=== PATIENT | male | born 1975 | race Caucasian/White ===

== ENCOUNTER 2020-07-04 21:17 | Emergency (ER) | payer BC ==
[2020-07-04] MEDS ORDERED: SODIUM CHLORIDE 0.9% 1,000 ML IV STA (21:45)
[2020-07-04] MEDS ORDERED: ACETAMINOPHEN TAB 500 MG TAB PO STA (22:07)
--- NOTE | 2020-07-04 22:21 | ED ---
General Adult HPI - General Source: patient Mode of arrival: wheelchair Limitations: no limitations <Rahel Zeng - Last Filed: 07/04/20 22:18> <Tal Ac - Last Filed: 07/05/20 00:00> - General Chief complaint: Fever Stated complaint: Syncope, Fever, Chills Time Seen by Provider: 07/04/20 21:32 - History of Present Illness Initial comments: Patient is a 44-year-old male presenting to the emergency Department with complaints of a syncopal event at home today. Patient states for the past week he's been battling what he thinks is Covid, bodyaches, fever, mild cough. He states he has been taking Tylenol and Motrin however today he felt like he was given a pass out and did fall to the ground. He states he felt lightheaded and dizzy. He's never had this feeling before and never had events like this before in the past. He denies any chest pain, he denies any shortness of breath but states when he does walk up a flight of stairs he does feel little winded. Patient is otherwise healthy, no pertinent past medical history, no history of blood clots. He states he last took ibuprofen about 3 hours prior to arrival. He states he has been drinking a lot of fluids including Pedialyte. He denies any nausea or vomiting, he did have a little bit of diarrhea over the past few days but feels like that is clearing up. He denies any headache or dizziness at this time. He has no further complaints. Upon arrival to the ER, his temperature is 100.3, otherwise normal vitals. (Rahel Zeng) - Related Data Home Medications Medication Instructions Recorded Confirmed Acetaminophen [Tylenol] 1,000 mg PO Q6H PRN 07/04/20 07/04/20 Ibuprofen [Motrin Ib] 400 mg PO Q8H PRN 07/04/20 07/04/20 Allergies Allergy/AdvReac Type Severity Reaction Status Date / Time No Known Allergies Allergy Verified 07/04/20 22:01 Review of Systems ROS Other: All systems not noted in ROS Statement are negative. <Rahel Zeng - Last Filed: 07/04/20 22:18> ROS Other: All systems not noted in ROS Statement are negative. <Tal Ac - Last Filed: 07/05/20 00:00> ROS Statement: Those systems with pertinent positive or pertinent negative responses have been documented in the HPI. Past Medical History Past Medical History: No Reported History History of Any Multi-Drug Resistant Organisms: None Reported Past Surgical History: No Surgical Hx Reported Past Psychological History: No Psychological Hx Reported Smoking Status: Never smoker Past Alcohol Use History: None Reported Past Drug Use History: None Reported <Rahel Zeng - Last Filed: 07/04/20 22:18> General Exam Limitations: no limitations <Rahel Zeng - Last Filed: 07/04/20 22:18> - General Exam Comments Initial Comments: GENERAL: Patient is well-developed and well-nourished. Patient is nontoxic and in no acute distress. HEAD: Atraumatic, normocephalic. EYES: Pupils equal round and reactive to light, extraocular movements intact, sclera anicteric, conjunctiva are normal. Eyelids were unremarkable. ENT: TMs normal, nares patent, oropharynx clear without exudates. Moist mucous membranes. NECK: Normal range of motion, supple without lymphadenopathy or JVD. LUNGS: Unlabored respirations. Breath sounds clear to auscultation bilaterally and equal. No wheezes rales or rhonchi. HEART: Regular rate and rhythm without murmurs, rubs or gallops. ABDOMEN: Soft, nontender, normoactive bowel sounds. No guarding, no rebound. No masses appreciated. : Deferred MUSCULOSKELETAL: Normal extremities with adequate strength and normal range of motion, no pitting or edema. No clubbing or cyanosis. NEUROLOGICAL: Patient is alert and oriented x 3. Motor and sensory are also intact. Cranial nerves II through XII grossly intact. Symmetrical smile. Normal speech, normal gait. PSYCH: Normal mood, normal affect. SKIN: Warm, Dry, normal turgor, no rashes or lesions noted. (Rahel Zeng) Course Vital Signs 07/04/20 07/04/20 21:21 23:00 Temperature 100.3 F H 100.2 F H Pulse Rate 97 89 Respiratory 18 20 Rate Blood Pressure 135/82 122/69 O2 Sat by Pulse 98 98 Oximetry EKG Findings - EKG Comments: EKG Findings:: Normal sinus rhythm, normal ECG, no signs of acute ischemia. Ventricular rate 92, HI interval 138, QT 354. <AzucenaFernandaRahel L - Last Filed: 07/04/20 22:18> Medical Decision Making <Rahel Zeng Rianna - Last Filed: 07/04/20 22:18> - Lab Data Result diagrams: 07/04/20 22:20 07/04/20 22:20 <Tal Ac - Last Filed: 07/05/20 00:00> - Medical Decision Making Patient is a 44-year-old male presenting for having a syncopal at home today. Patient states he has been battling what he thinks is Covid for the past 5 days. He has not been tested. He did arrive with a slight fever, otherwise vitals were normal. His exam is unremarkable. She said no acute process. (Rahel Zeng) I took over care of patient at 2300 from NIKO Franklin. Briefly patient is a 44-year-old male without any significant past medical history who presents for near syncopal episode. Patient states he has had cold symptoms for a week now. States today he said get hot and feel weak, felt like he was going to pass out. He lowered himself to the ground. Patient did not lose consciousness. Patient states he felt better shortly after that presented to the emergency room for further evaluation. Patient denies chest pain or shortness of breath. Patient denies any lightheadedness at this time. CBC CMP unremarkable. EKG was reviewed, no ischemic changes. Troponin is negative. Martins virus was detected. Chest x-ray shows a normal chest. Patient was given a liter of fluids. He is somewhat better at this time. At this time patient is stable for discharge home and outpatient follow-up. He should return here for any worsening symptoms which was discussed with him. (Tal Ac) - Lab Data Lab Results 07/04/20 07/04/20 07/04/20 Range/Units 21:33 22:20 22:20 WBC 4.8 (3.8-10.6) k/uL RBC 5.12 (4.30-5.90) m/uL Hgb 15.2 (13.0-17.5) gm/dL Hct 43.1 (39.0-53.0) % MCV 84.2 (80.0-100.0) fL MCH 29.6 (25.0-35.0) pg MCHC 35.2 (31.0-37.0) g/dL RDW 12.2 (11.5-15.5) % Plt Count 133 L (150-450) k/uL MPV 7.1 Neutrophils % 83 % Lymphocytes % 11 % Monocytes % 5 % Eosinophils % 0 % Basophils % 0 % Neutrophils # 4.0 (1.3-7.7) k/uL Lymphocytes # 0.5 L (1.0-4.8) k/uL Monocytes # 0.3 (0-1.0) k/uL Eosinophils # 0.0 (0-0.7) k/uL Basophils # 0.0 (0-0.2) k/uL PT 10.3 (9.0-12.0) sec INR 1.0 (<1.2) APTT 23.3 (22.0-30.0) sec Sodium (137-145) mmol/L Potassium (3.5-5.1) mmol/L Chloride (98-107) mmol/L Carbon Dioxide (22-30) mmol/L Anion Gap mmol/L BUN (9-20) mg/dL Creatinine (0.66-1.25) mg/dL Est GFR (CKD-EPI)AfAm (>60 ml/min/1.73 sqM) Est GFR (CKD-EPI)NonAf (>60 ml/min/1.73 sqM) Glucose (74-99) mg/dL Calcium (8.4-10.2) mg/dL Total Bilirubin (0.2-1.3) mg/dL AST (17-59) U/L ALT (4-49) U/L Alkaline Phosphatase (38-126) U/L Troponin I (0.000-0.034) ng/mL Total Protein (6.3-8.2) g/dL Albumin (3.5-5.0) g/dL Coronavirus (PCR) Detected A (Not Detectd) 07/04/20 07/04/20 Range/Units 22:20 22:20 WBC (3.8-10.6) k/uL RBC (4.30-5.90) m/uL Hgb (13.0-17.5) gm/dL Hct (39.0-53.0) % MCV (80.0-100.0) fL MCH (25.0-35.0) pg MCHC (31.0-37.0) g/dL RDW (11.5-15.5) % Plt Count (150-450) k/uL MPV Neutrophils % % Lymphocytes % % Monocytes % % Eosinophils % % Basophils % % Neutrophils # (1.3-7.7) k/uL Lymphocytes # (1.0-4.8) k/uL Monocytes # (0-1.0) k/uL Eosinophils # (0-0.7) k/uL Basophils # (0-0.2) k/uL PT (9.0-12.0) sec INR (<1.2) APTT (22.0-30.0) sec Sodium 135 L (137-145) mmol/L Potassium 3.8 (3.5-5.1) mmol/L Chloride 99 (98-107) mmol/L Carbon Dioxide 27 (22-30) mmol/L Anion Gap 9 mmol/L BUN 18 (9-20) mg/dL Creatinine 1.24 (0.66-1.25) mg/dL Est GFR (CKD-EPI)AfAm 83 (>60 ml/min/1.73 sqM) Est GFR (CKD-EPI)NonAf 72 (>60 ml/min/1.73 sqM) Glucose 108 H (74-99) mg/dL Calcium 8.6 (8.4-10.2) mg/dL Total Bilirubin 0.5 (0.2-1.3) mg/dL AST 33 (17-59) U/L ALT 31 (4-49) U/L Alkaline Phosphatase 65 (38-126) U/L Troponin I <0.012 (0.000-0.034) ng/mL Total Protein 6.6 (6.3-8.2) g/dL Albumin 4.2 (3.5-5.0) g/dL Coronavirus (PCR) (Not Detectd) Disposition <Rahel Zeng - Last Filed: 07/04/20 22:18> Is patient prescribed a controlled substance at d/c from ED?: No Time of Disposition: 23:51 <Tal Ac - Last Filed: 07/05/20 00:00> Clinical Impression: Near syncope, COVID-19 Disposition: HOME SELF-CARE Condition: Good Instructions (If sedation given, give patient instructions): Fever in Adults (ED), Coronavirus Disease 2019 (COVID-19) Additional Instructions: Please take Motrin and Tylenol for fever. Drink plenty of fluids. Please follow- up with primary care in 1-2 days. Return to the emergency room for any worsening symptoms. Referrals: Gadiel Leal MD [Primary Care Provider] - 1-2 days
--- NOTE | 2020-07-04 22:25 | XR ---
EXAMINATION TYPE: XR chest 1V portable DATE OF EXAM: 07/04/2020 COMPARISON: NONE HISTORY: Fever and chills TECHNIQUE: Single view FINDINGS: Heart and mediastinum are normal. Lungs are clear. Diaphragm is normal. Bony thorax appears normal. IMPRESSION: Normal chest. Normal heart.
[2020-07-04 22:58] LABS: Basophils % (A) 0 %; Eosinophils % (A) 0 %; HCT 43.1 % (39.0-53.0); HGB 15.2 gm/dL (13.0-17.5); Lymphocytes # (A) 0.5 k/uL (1.0-4.8); Lymphocytes % (A) 11 %; MCH 29.6 pg (25.0-35.0); MCHC 35.2 g/dL (31.0-37.0); MCV 84.2 fL (80.0-100.0); Mean Platelet Volume 7.1; Monocytes # (A) 0.3 k/uL (0-1.0); Monocytes % (A) 5 %; Neutrophils % (A) 83 %; Platelet Count 133 k/uL (150-450); RBC 5.12 m/uL (4.30-5.90); RDW 12.2 % (11.5-15.5); WBC 4.8 k/uL (3.8-10.6)
[2020-07-04 23:09] LABS: Albumin 4.2 g/dL (3.5-5.0); Calcium 8.6 mg/dL (8.4-10.2); Potassium 3.8 mmol/L (3.5-5.1); Total Bilirubin 0.5 mg/dL (0.2-1.3); Total Protein 6.6 g/dL (6.3-8.2)
[2020-07-04 23:14] VITALS: PULSE 89; RESP 20
[2020-07-04 23:24] LABS: Partial Thromboplastin Time 23.3 sec (22.0-30.0); Prothrombin Time 10.3 sec (9.0-12.0)
[2020-07-05 00:24] VITALS: BP 126/65; TEMP 100
[2020-07-05 00:47] LABS: Appearance,Urine Clear (Clear); Bilirubin,Urine Negative (Negative); Blood,Urine Negative (Negative); Color,Urine Yellow; Glucose,Urine (UA) Negative (Negative); Ketones,Urine 1+ (Negative); Leukocyte Esterase,Urine Negative (Negative); Nitrite,Urine Negative (Negative); Protein,Urine Trace (Negative); Specific Gravity,Urine 1.025 (1.001-1.035); Urobilinogen,Urine <2.0 mg/dL (<2.0)
== END 2020-07-05 00:05 | disposition home or self-care (01) ==
LOC: EC 21:17
DX: U07.1 COVID-19 (principal); R55 Syncope and collapse
CPT/HCPCS: 36415; 71045; 80053; 81003; 84484; 85025; 85610; 85730; 87635; 93005; 96360; 99284

== ENCOUNTER 2021-10-23 14:34 | Emergency (ER) | payer BC ==
[2021-10-23 14:40] VITALS: BP 129/76; PULSE 88; RESP 18; TEMP 97.3
[2021-10-23] MEDS ORDERED: SODIUM CHLORIDE 0.9% 1,000 ML IV STA (14:54)
[2021-10-23 15:02] LABS: Basophils % (A) 0 %; Eosinophils # (A) 0.3 k/uL (0-0.7); Eosinophils % (A) 3 %; HCT 45.2 % (39.0-53.0); HGB 15.5 gm/dL (13.0-17.5); Lymphocytes % (A) 31 %; MCH 30.3 pg (25.0-35.0); MCHC 34.4 g/dL (31.0-37.0); MCV 88.1 fL (80.0-100.0); Mean Platelet Volume 7.2; Monocytes # (A) 0.5 k/uL (0-1.0); Monocytes % (A) 5 %; Neutrophils # (A) 5.5 k/uL (1.3-7.7); Neutrophils % (A) 58 %; Platelet Count 250 k/uL (150-450); RBC 5.13 m/uL (4.30-5.90); WBC 9.5 k/uL (3.8-10.6)
--- NOTE | 2021-10-23 15:04 | XR ---
EXAMINATION TYPE: XR chest 2V DATE OF EXAM: 10/23/2021 COMPARISON: 07/04/2020 HISTORY: Fever and chills TECHNIQUE: 2 views FINDINGS: Heart and mediastinum are normal. Lungs are clear. Diaphragm is normal. Bony thorax is inta ct. IMPRESSION: Normal chest. No change.
[2021-10-23 15:11] LABS: ALT 22 U/L (4-49); AST 29 U/L (17-59); African American GFR (CKD) 83 (>60 ml/min/1.73 sqM); Albumin 4.6 g/dL (3.5-5.0); Alkaline Phosphatase 71 U/L (38-126); Anion Gap 12 mmol/L; Blood Urea Nitrogen 18 mg/dL (9-20); Calcium 9.1 mg/dL (8.4-10.2); Carbon Dioxide 25 mmol/L (22-30); Chloride 102 mmol/L (98-107); Glucose 148 mg/dL (74-99); Magnesium 2.1 mg/dL (1.6-2.3); Non-African American GFR(CKD) 71 (>60 ml/min/1.73 sqM); Potassium 3.6 mmol/L (3.5-5.1); Sodium 139 mmol/L (137-145); Total Bilirubin 0.4 mg/dL (0.2-1.3); Total Protein 7.1 g/dL (6.3-8.2)
[2021-10-23 15:19] LABS: Partial Thromboplastin Time 22.1 sec (22.0-30.0); Prothrombin Time 10.5 sec (9.0-12.0)
--- NOTE | 2021-10-23 15:45 | ED ---
Arrhythmia/Palpitations HPI - General Chief Complaint: Arrhythmia/Palpitations Stated Complaint: racing heart rate Time Seen by Provider: 10/23/21 14:41 Source: patient Mode of arrival: ambulatory Limitations: no limitations - History of Present Illness Initial Comments: Patient is a 46-year-old male presenting with chief complaint of palpitations. Patient states that prior to arrival he was in his truck after eating lunch, when he felt sudden onset of fluttering in his chest. Patient states he felt as though he was going to pass out, he states his vision became blurry and his hearing sounded distorted. He had a moment of difficulty breathing. He states that he was able to get into the passenger's seat and turned on the air which helped him to calm down. Patient states that he has had episodes of palpitations before, however he has never followed up with his provider regarding them. He denies any chest pain, weakness, abdominal pain, nausea, vomiting, fever, chills, recent illness, URI-like symptoms, cough. - Related Data Home Medications Medication Instructions Recorded Confirmed Amoxic-Pot Clav 875-125Mg 1 tab PO BID 10/23/21 10/23/21 [Augmentin 875-125] Allergies Allergy/AdvReac Type Severity Reaction Status Date / Time No Known Allergies Allergy Verified 10/23/21 15:37 Review of Systems ROS Statement: Those systems with pertinent positive or pertinent negative responses have been documented in the HPI. ROS Other: All systems not noted in ROS Statement are negative. Past Medical History Past Medical History: No Reported History History of Any Multi-Drug Resistant Organisms: None Reported Past Surgical History: No Surgical Hx Reported Past Psychological History: No Psychological Hx Reported Smoking Status: Never smoker Past Alcohol Use History: None Reported Past Drug Use History: None Reported General Exam Limitations: no limitations General appearance: alert, in no apparent distress Head exam: Present: atraumatic, normocephalic, normal inspection Eye exam: Present: normal appearance, EOMI. Absent: scleral icterus, periorbital swelling Neck exam: Present: normal inspection Respiratory exam: Present: normal lung sounds bilaterally. Absent: respiratory distress, wheezes, rales, rhonchi, stridor Cardiovascular Exam: Present: regular rate, normal rhythm, normal heart sounds. Absent: systolic murmur, diastolic murmur, rubs, gallop, clicks Extremities exam: Present: normal inspection Neurological exam: Present: alert, oriented X3, CN II-XII intact Psychiatric exam: Present: normal affect, normal mood Skin exam: Present: warm, dry, intact, normal color. Absent: rash Course Vital Signs 10/23/21 10/23/21 14:38 16:16 Temperature 97.3 F L 97.3 F L Pulse Rate 88 88 Respiratory 18 18 Rate Blood Pressure 129/76 129/76 O2 Sat by Pulse 100 100 Oximetry EKG Findings - EKG Comments: EKG Findings:: Sinus rhythm with sinus arrhythmia. Rate of 82. MD interval 144. QRS duration 94. QTC 421. No acute ST or T-wave changes.` Medical Decision Making - Medical Decision Making Patient is a 46-year-old male presenting with chief complaint of palpitations. He had an episode of a sensation like "my heart is skipping a beat", he felt he was going to pass out at this time. At this time the patient states that he is anxious but has no sensation of palpitations, chest pain, shortness of breath. On examination heart and lungs are clear to auscultation. Chest x-ray shows no acute process. CBC, PT/INR, troponin, CMP are unremarkable. TSH is WNL. Patient is asymptomatic at this time. He appears stable for discharge with outpatient follow-up at this time. Follow-up with PCP and inquire about Holter monitor. Report back to ER with any new or worsening symptoms. Discussed return parameters and answered all questions. Patient conveyed verbal understanding and agreed to the plan. I discussed this case with my attending Dr. Jaramillo - Lab Data Result diagrams: 10/23/21 14:56 10/23/21 14:56 Lab Results 10/23/21 10/23/21 10/23/21 Range/Units 14:56 14:56 14:56 WBC 9.5 (3.8-10.6) k/uL RBC 5.13 (4.30-5.90) m/uL Hgb 15.5 (13.0-17.5) gm/dL Hct 45.2 (39.0-53.0) % MCV 88.1 (80.0-100.0) fL MCH 30.3 (25.0-35.0) pg MCHC 34.4 (31.0-37.0) g/dL RDW 13.0 (11.5-15.5) % Plt Count 250 (150-450) k/uL MPV 7.2 Neutrophils % 58 % Lymphocytes % 31 % Monocytes % 5 % Eosinophils % 3 % Basophils % 0 % Neutrophils # 5.5 (1.3-7.7) k/uL Lymphocytes # 3.0 (1.0-4.8) k/uL Monocytes # 0.5 (0-1.0) k/uL Eosinophils # 0.3 (0-0.7) k/uL Basophils # 0.0 (0-0.2) k/uL PT 10.5 (9.0-12.0) sec INR 1.0 (<1.2) APTT 22.1 (22.0-30.0) sec Sodium 139 (137-145) mmol/L Potassium 3.6 (3.5-5.1) mmol/L Chloride 102 (98-107) mmol/L Carbon Dioxide 25 (22-30) mmol/L Anion Gap 12 mmol/L BUN 18 (9-20) mg/dL Creatinine 1.23 (0.66-1.25) mg/dL Est GFR (CKD-EPI)AfAm 83 (>60 ml/min/1.73 sqM) Est GFR (CKD-EPI)NonAf 71 (>60 ml/min/1.73 sqM) Glucose 148 H (74-99) mg/dL Calcium 9.1 (8.4-10.2) mg/dL Magnesium 2.1 (1.6-2.3) mg/dL Total Bilirubin 0.4 (0.2-1.3) mg/dL AST 29 (17-59) U/L ALT 22 (4-49) U/L Alkaline Phosphatase 71 (38-126) U/L Troponin I (0.000-0.034) ng/mL Total Protein 7.1 (6.3-8.2) g/dL Albumin 4.6 (3.5-5.0) g/dL TSH 0.654 (0.465-4.680) mIU/L 10/23/21 Range/Units 14:56 WBC (3.8-10.6) k/uL RBC (4.30-5.90) m/uL Hgb (13.0-17.5) gm/dL Hct (39.0-53.0) % MCV (80.0-100.0) fL MCH (25.0-35.0) pg MCHC (31.0-37.0) g/dL RDW (11.5-15.5) % Plt Count (150-450) k/uL MPV Neutrophils % % Lymphocytes % % Monocytes % % Eosinophils % % Basophils % % Neutrophils # (1.3-7.7) k/uL Lymphocytes # (1.0-4.8) k/uL Monocytes # (0-1.0) k/uL Eosinophils # (0-0.7) k/uL Basophils # (0-0.2) k/uL PT (9.0-12.0) sec INR (<1.2) APTT (22.0-30.0) sec Sodium (137-145) mmol/L Potassium (3.5-5.1) mmol/L Chloride (98-107) mmol/L Carbon Dioxide (22-30) mmol/L Anion Gap mmol/L BUN (9-20) mg/dL Creatinine (0.66-1.25) mg/dL Est GFR (CKD-EPI)AfAm (>60 ml/min/1.73 sqM) Est GFR (CKD-EPI)NonAf (>60 ml/min/1.73 sqM) Glucose (74-99) mg/dL Calcium (8.4-10.2) mg/dL Magnesium (1.6-2.3) mg/dL Total Bilirubin (0.2-1.3) mg/dL AST (17-59) U/L ALT (4-49) U/L Alkaline Phosphatase (38-126) U/L Troponin I <0.012 (0.000-0.034) ng/mL Total Protein (6.3-8.2) g/dL Albumin (3.5-5.0) g/dL TSH (0.465-4.680) mIU/L Disposition Clinical Impression: Palpitations Disposition: HOME SELF-CARE Condition: Good Instructions (If sedation given, give patient instructions): Heart Palpitations (ED) Additional Instructions: Follow-up with PCP in one to 2 days regarding symptoms and need for cardiac event monitor. Report back to ER with any new or worsening symptoms. Is patient prescribed a controlled substance at d/c from ED?: No Referrals: Gadiel Leal MD [Primary Care Provider] - 1-2 days Time of Disposition: 16:09
== END 2021-10-23 16:16 | disposition home or self-care (01) ==
LOC: EC 14:34
DX: R00.2 Palpitations (principal)
CPT/HCPCS: 36415; 71046; 80053; 83735; 84443; 84484; 85025; 85610; 85730; 93005; 96360; 99285

== ENCOUNTER → 2021-11-23 | Outpatient (CLI) | payer BC ==
--- NOTE | 2021-11-23 12:37 | CA ---
Stress Echo Report Lencho Daley Age: 46 Gender: M : 1975 Exam Date: 11/23/2021 10:29 Exam Location: [place] Echo Ht (in): 71 Wt (lb): 190 Ordering Physician: Gadiel Leal MD Referring Physician: Elvis WEISS Ip Counsel: Genesis Kitchen RDCS Technologist Procedure CPT: Indication: R00.2 palpitations ICD-9 Codes: Rhythm: Patient History: Cardiac arrhythmia Cardiac Medications: NONE Medications in past 24 hours: Contrast: Stress Results Protocol: Vincent Total dose(mL): Exercise Duration (min:sec): Max ST Depression (mm): Angina Score: Bee Score: METS: 10.3 Resting HR: 102 Resting BP: 126 / 57 Peak HR: 175 Peak BP: 150 / 47 Max Predicted HR: 176 99 % Max Predicted HR Target HR: 150 Double Product: [id number] Stress Summary: BP Response: Reason for Termination: Reached target heart rate or work-load Cardiac Symptoms: Short of Breath ECG Analysis Resting ECG: Stress ECG: Arrhythmia: Echo Analysis Resting Echo: Peak Echo Analysis: MEASUREMENTS (Male/Female) Normal Values CONCLUSIONS Excellent exercise tolerance Normal EKG in response to exercise Normal echocardiogram in response to exercise Dr. Dave Marlow MD (Electronically Signed) Final Date: 23 November 2021 12:36
--- NOTE | 2021-11-23 12:39 | CA ---
Transthoracic Echo Report Name: Lencho Daley Age: 46 Gender: M : 1975 Exam Date: 11/23/2021 10:03 Exam Location: [place] Echo Ht (in): 71 Wt (lb): 190 Ordering Physician: Gadiel Leal MD Attending/Referring Phys: [id number], Elvis Collection Teller Genesis Kitchen, [facility] Procedure CPT: Indications: R07.89 other chest pain Cardiac Hx: Technical Quality: Good Contrast 1: Total Dose (mL): Contrast 2: Total Dose (mL): MEASUREMENTS (Male / Female) Normal Values 2D ECHO LV Diastolic Diameter PLAX 4.6 cm 4.2 - 5.9 / 3.9 - 5.3 cm LV Systolic Diameter PLAX 2.4 cm IVS Diastolic Thickness 0.9 cm 0.6 - 1.0 / 0.6 - 0.9 cm LVPW Diastolic Thickness 0.9 cm 0.6 - 1.0 / 0.6 - 0.9 cm LV Relative Wall Thickness 0.4 RV Internal Dim ED PLAX 3.0 cm LA Systolic Diameter LX 3.1 cm 3.0 - 4.0 / 2.7 - 3.8 cm M-MODE Aortic Root Diameter MM 3.0 cm MV E Point Septal Separation 0.2 cm AV Cusp Separation MM 2.5 cm DOPPLER AV Peak Velocity 113.3 cm/s AV Peak Gradient 5.1 mmHg MV Area PHT 3.3 cm??? Mitral E Point Velocity 86.3 cm/s Mitral A Point Velocity 53.6 cm/s Mitral E to A Ratio 1.6 MV Deceleration Time 231.9 ms MV E' Velocity 11.7 cm/s Mitral E to MV E' Ratio 7.4 TR Peak Velocity 194.8 cm/s TR Peak Gradient 15.2 mmHg Right Ventricular Systolic Press 20.2 mmHg FINDINGS Left Ventricle Left ventricular ejection fraction is estimated at 60-65 %. Left ventricular cavity size normal. Left ventricular wall thickness normal. Right Ventricle Normal right ventricular size and function. Right ventricular systolic pressure within normal limits. Right Atrium Normal right atrial size. Left Atrium Normal left atrial size. No evidence for an atrial septal defect. Mitral Valve Mild mitral regurgitation. Aortic Valve Trileaflet aortic valve. No aortic valve stenosis or regurgitation. Tricuspid Valve Trace to mild tricuspid regurgitation. Pulmonic Valve Trace pulmonic regurgitation. Pericardium Normal pericardium. No pericardial effusion. Aorta Normal size aortic root and proximal ascending aorta. CONCLUSIONS Normal left ventricular dimension and systolic function Previewed by: Dr. Dave Marlow MD (Electronically Signed) Final Date: 23 November 2021 12:38
== END | disposition home or self-care (01) ==
LOC: RADNMMAIN 09:55
PROVIDERS: ATTEND Family Medicine
DX: R07.89 Other chest pain (principal); R00.2 Palpitations; R03.0 Elevated blood-pressure reading, without diagnosis of hypertension
CPT/HCPCS: 93270; 93306; 93351

== ENCOUNTER → 2022-07-16 | Outpatient (CLI) | payer BC ==
--- NOTE | 2022-07-17 16:31 | MR ---
EXAMINATION TYPE: MR Prostate wo/w con DATE OF EXAM: 07/16/2022 8:42 AM COMPARISON: None CLINICAL INDICATION:Male, 46 years old with history of R97.20 ELEVATED PSA; TECHNIQUE: Multi-planar, multi-sequence imaging of the pelvis is performed prior to and following the uncomplicated administration of bolus intravenous gadolinium. CONTRAST: 8.5 Gadavist Interpretive Criteria: PI-RADS v2.1 SERUM PSA: 8.3 on 06/20/2022 5.3 on 05/17/2022 SURGICAL PATHOLOGY: No data available. FINDINGS: Prostatic dimensions: 3.1 x 3.9 x 2.4 cm. "Bullet" Volume:18.50 (PSA density=0.45 ng/mL/mL) CENTRAL GLAND (Central and Transition Zones/CZ+TZ): No suspicious lesion. Median lobe hypertrophy with protrusion into the base of the bladder. (PI-RADS 2) PERIPHERAL ZONE (PZ): No evidence of masslike abnormality, or localized perfusional hypervascularity, to further suggest a focus of clinically significant prostate cancer. Mild peripheral wedge-shaped low DWI/T2 signal witho ut restricted diffusion (PI-RADS 2) . There is a T2 signal utricle cyst measuring 5 mm SEMINAL VESICLES (SV): Symmetric and unremarkable. PERIPROSTATIC TISSUES: Unremarkable. LYMPH NODES: No enlarged pelvic lymph node. REMAINING PELVIS: Bladder wall is within normal limits given distention. No abnormal free or organized intrapelvic fluid collection. No pathologic bowel dilation or mural thickening. OSSEOUS STRUCTURES: No suspicious osseous abnormality. IMPRESSION: No specific features for high-risk prostate cancer. Maximum PI-RADS score: 2.
== END | disposition home or self-care (01) ==
LOC: RADMRIMAIN 07:25
PROVIDERS: ATTEND Urology
DX: R97.20 Elevated prostate specific antigen [PSA] (principal)
CPT/HCPCS: 72197; A9585

== ENCOUNTER 2022-11-29 09:44 | Day surgery (SDC) | payer BC ==
[2022-11-29] MEDS ORDERED: LACTATED RINGERS 1,000 ML IV ONE (10:32)
[2022-11-29 10:34] VITALS: TEMP 97.5
[2022-11-29] MEDS ORDERED: PROPOFOL 10 MG/ML 20 ML VIAL IV ONE (10:41)
--- NOTE | 2022-11-29 10:44 | P.GSHP ---
History of Present Illness H&P Date: 11/29/22 Chief Complaint: Colon cancer screening 47-year-old male here for colonoscopy. He has not had 1 previously. No bowel complaints. No family history of colon cancer. Past Medical History Past Medical History: No Reported History Additional Past Medical History / Comment(s): Routine colonoscopy History of Any Multi-Drug Resistant Organisms: None Reported Past Surgical History: No Surgical Hx Reported Additional Past Surgical History / Comment(s): [place] teeth extracted Past Anesthesia/Blood Transfusion Reactions: No Reported Reaction, Motion Sickness Smoking Status: Former smoker - Past Family History Father Additional Family Medical History / Comment(s): Diverticulitis Medications and Allergies Home Medications Medication Instructions Recorded Confirmed Type No Known Home Medications 11/24/22 11/24/22 History Allergies Allergy/AdvReac Type Severity Reaction Status Date / Time No Known Allergies Allergy Verified 11/24/22 10:57 Surgical - Exam Vital Signs Temp Pulse BP Pulse Ox 97.5 F L 89 139/73 100 11/29/22 10:33 11/29/22 10:33 11/29/22 10:33 11/29/22 10:33 Physical exam: General: Well-developed, well-nourished HEENT: Normocephalic, sclerae nonicteric Abdomen: Nontender, nondistended Extremities: No edema Neuro: Alert and oriented Assessment and Plan (1) Colon cancer screening Narrative/Plan: Will proceed with colonoscopy at this time. Current Visit: Yes Status: Acute Code(s): Z12.11 - ENCOUNTER FOR SCREENING FOR MALIGNANT NEOPLASM OF COLON SNOMED Code(s): 823498544
--- NOTE | 2022-11-29 10:57 | P.PCN ---
Date of Procedure: 11/29/22 Procedure(s) Performed: PREOPERATIVE DIAGNOSIS: Colon cancer screening POSTOPERATIVE DIAGNOSIS: Normal exam PROCEDURE: Colonoscopy ANESTHESIA: MAC SURGEON: Joseph Murray M.D. SPECIMENS: None ENDOSCOPIC PROCEDURE: The patient was placed on the endoscopy table in the left decubitus position. The Olympus colonoscope was inserted into the anus and passed under direct visualization to the base of the cecum. The appendiceal orifice was visualized. From that point the scope was slowly withdrawn inspecti ng all surfaces carefully. There were no neoplastic inflammatory or polypoid lesions throughout the cecum, ascending, transverse, descending, sigmoid and rectum. There was no visible diverticulosis noted. Digital rectal examination was normal. The patient was taken to the recovery room in stable condition per anesthesia guidelines. RECOMMENDATIONS: Resume diet. Repeat colonoscopy in 10 years.
[2022-11-29] MEDS ORDERED: LACTATED RINGERS 1,000 ML IV SCH (11:09)
[2022-11-29 11:11] VITALS: RESP 18
[2022-11-29 11:45] VITALS: BP 115/73; PULSE 74
== END 2022-11-29 11:49 | disposition home or self-care (01) ==
LOC: ORWHC2ENDO 09:44
PROVIDERS: ATTEND Surgery
DX: Z12.11 Encounter for screening for malignant neoplasm of colon (principal); Z83.79 Family history of other diseases of the digestive system; Z87.891 Personal history of nicotine dependence
CPT/HCPCS: 45378; J2704